=== PATIENT | female | born 1980 | race Native Hawaiian/Other Pacific Islander ===

== ENCOUNTER 2016-12-01 06:49 | Emergency (ER) | payer OTHER ==
[~2016-12-01] VITALS: Ht 152.4 cm; Wt 54.5 kg
[~2016-12-01 06:49] MED LIST: ASCO1TAB22 PO; Docusate Sodium PO; HYDR25SU31 RC; Hydrocodone/Acetaminophen PO; Ibuprofen PO; PREN-125 PO
[2016-12-01 06:51] VITALS: BP 117/75; PULSE 79; RESP 16; O2SAT 99
--- NOTE | 2016-12-01 07:19 | ED.REPORT ---
HPI-Abd Pain F Under 40 Date of Service Dec 01, 2016 ED Provider: Mamie Doe MD Patient is an otherwise healthy 35 year old female who presents to the ED complaining of lower abdominal pain onset yesterday. The onset of her pain occurred the day after the onset of her period. Her pain is 7/10 in severity, worse with BM's, and is localized to the suprapubic region. Her last BM was yesterday. Associated symptoms include mild headache and bloating. She denies nausea, vomiting, fevers, chills, diarrhea, constipation, dysuria, or any other symptoms. She has been taking Ibuprofen, 600mg, 2x a day and using a heating pad without relief. She has had similar, though less severe, symptoms previously and it has been an ongoing issue. She does not have particularly heavy periods and is not bleeding heavily with this episode. She was started on control one month ago in attempt to help with her regular period cramping. She has a follow up appointment in January. In September she was diagnosed with a R ovarian cyst that may be hemorrhagic. Nursing Notes Stated Complaint: STOMACH PAIN Chief Complaint: Female Abdominal Pain Nursing Notes Reviewed: Yes Allergies: Coded Allergies: No Known Allergies (Unverified , 12/01/16) Scheduled ([Docusate Sodium]) 100 MG CAPSULE 100 MG PO BID Nitrofurantoin Monohyd/M-Cryst (MacroBid) 100 Mg Capsule 100 MG PO BID Scheduled PRN ([Ibuprofen]) 800 MG TABLET 800 MG PO Q8 PRN PRN For Pain ([Hydrocodone/Acetaminophen]) 1 TAB TABLET 1-2 TAB PO Q4H PRN PRN For Pain Miscellaneous Medications ([None]) Ascorbic Acid/Bioflavonoids (Vit C-Bioflavonoids Tab SA) 1 Each Tablet.er 1 EACH PO Hydrocortisone Acetate (Anusol-Hc) 25 Mg Supp.rect 25 MG RC Vit #60/Iron Fum/FA (Pnv Folic Acid + Iron Tablet) 1 Each Tablet 1 EACH PO General Time Seen by MD: 06:58 Chief Complaint Abdominal pain Hx Obtained From: Patient Arrived By: Walk-in Sudden in Onset?: Yes Onset Occurred: Yesterday Symptom Duration: Since onset Location: : Suprapubic Quality: Painful Severity: Current: Pain level 7 out of 10 Similar Sx Previous: Yes Past Medical History Past Medical History Healthy Past Surgical History None reported Smoking History Never Smoker Social History Alcohol Use: Denies alcohol use Drug Use: Denies drug use Ambulatory Status Independent Review of Systems Constitutional: Denies: Chills, Fever GI: Reports: Abdominal pain (worse with BM's, with bloating ), Denies: Constipation, Diarrhea, Nausea, Vomiting Female: Denies: Dysuria Complete sys rev & neg: except as marked. Neurologic: Reports: Headache Physical Exam Initial Vital Signs Vital Signs (First) Date Time Temp Pulse Resp B/P Pulse Ox O2 Delivery O2 Flow Rate FiO2 12/01/16 06:51 36.3 79 16 117/75 99 Room Air Initial VS: Reviewed, Vital signs normal Head / Eyes: Atraumatic, Normocephalic Neck: Full range of motion Skin: Warm, Dry Neurologic: Alert, Oriented, Nonfocal Psychiatric: Mood/affect normal, Behavior normal, Normal thought content General/Constitutional: Awake, Alert, No acute distress Respiratory / Chest: Breath sounds NL, Breath sounds = bilat, No respiratory distress Cardiovascular: Heart rate NL, Regular rhythm, Heart sounds NL, No gallop, No murmurs, No rubs Abdomen: Atraumatic, Soft, Non-tender mild bloating Back: Atraumatic Interpretation & Diagnostics Interpretation & Diagnostics: Urine trace leuks and positive nitrites Lab Results Interpretation Result Diagram: 12/01/16 0836 12/01/16 0836 Test 12/01/16 07:48 12/01/16 08:36 Urine Color Straw (YELLOW) Urine Appearance Hazy (CLEAR,HAZY) Urine pH 6.0 (5.0-8.0) Urine Specific [place] 1.015 (1.003-1.035) Urine Protein Negativemg/dL (NEG,TRACE) Urine Glucose (UA) Negativemg/dL (NEGATIVE) Urine Ketones Negativemg/dL (NEGATIVE) Urine Occult Blood Large (NEGATIVE) Urine Nitrite Negative (NEGATIVE) Urine Bilirubin Negative (NEGATIVE) Urine Urobilinogen Normalmg/dL (NORMAL) Urine Leukocyte Esterase Small (NEGATIVE) Urine RBC 3-10/hpf (0-2) Urine WBC 11-50/hpf (0-5) Urine Epithelial Cells Occasional/hpf (NONE-MOD) Urine Crystals None seen (NONE SEEN) Urine Bacteria Moderate/hpf (NONE-FEW) Urine Hyaline Casts None/lpf (NONE) Urine Granular Casts None seen (NONE SEEN) Urine Waxy Casts None seen (NONE SEEN) Urine Red Blood Cell Casts None seen (NONE SEEN) Urine White Blood Cell Casts None seen (NONE SEEN) Urine Mucus None seen (None Seen) Urine Trichomonas None seen (NONE SEEN) Urine Yeast None (NONE SEEN) Urinalysis Comment None Urine Culture Reflexed Indicated White Blood Count 6.7th/mm3 (3.8-10.1) Red Blood Count 3.91mil/mm3 (3.90-5.20) Hemoglobin 11.4g/dL (12.0-15.6) Hematocrit 34.7% (35.0-46.0) Mean Corpuscular Volume 88.7fL (81-100) Mean Corpuscular Hemoglobin 29.2pg (27.0-35.0) Mean Corpuscular Hemoglobin Concent 32.9% (32.0-37.0) Red Cell Distribution Width 12.8% (12.3-15.4) Platelet Count 240bil/L (150-400) Neutrophils (%) (Auto) 61.8% (40-74) Lymphocytes (%) (Auto) 28.0% (14-46) Monocytes (%) (Auto) 8.0% (4-12) Eosinophils (%) (Auto) 1.5% (0-5) Basophils (%) (Auto) 0.5% (0-3) Sodium Level 141mEq/L (134-144) Potassium Level 3.7mEq/L (3.5-5.2) Chloride Level 106mEq/L (97-108) Carbon Dioxide Level 22mmol/L (18-29) Blood Urea Nitrogen 9mg/dL (6-20) Creatinine 0.63mg/dL (0.57-1.00) Estimat Glomerular Filtration Rate 155mL/min (>59) Glucose Level 103mg/dL (60-99) Calcium Level 7.9mg/dL (8.5-10.1) Total Bilirubin 0.3mg/dL (0.0-1.2) Aspartate Amino Transf (AST/SGOT) 12U/L (0-50) Alanine Aminotransferase (ALT/SGPT) 7U/L (0-32) Alkaline Phosphatase 60U/L (25-150) Total Protein 6.6g/dL (6.4-8.4) Albumin 3.7g/dL (3.4-5.0) Lipase 30U/L (13-60) Lab Results Interpretation: US from 10/12/16: IMPRESSION: 1. Trace amount of dynamic endometrial fluid present. 2. Complex mass involving the right ovary likely representing a small hemorrhagic cyst. Differential diagnosis would include endometrioma as well as other benign or malignant neoplasm. Recommend short term follow pelvic ultrasound in 6-12 weeks to assess for temporal resolution. Dictated by: Jaiden Noble RRA Interpreted: Puja Diaz MD on 10/13/2016 at 8:16 Approved by: Puja Diaz M.D. on 10/13/2016 at 17:02 US Focused non-OB Pelvis ovarian cyst resolved no free fluid in pelvis Exam Performed by: Allied health pract Re-Eval/Medical Decision Re-Evaluation/Progress #1: Time of Eval: 08:00 Re-Evaluation/Progress Note: Clinic note from patient's PCP on 11/02 indicates a diagnosis of dysmenorrhea and a plan for F/U in 3 mo Re-Evaluation/Progress #2: Time of Eval: 08:24 )( Re-Eval Abdomen: Soft Re-Evaluation/Progress Note: Discussed ultraound results, diagnosis, and plan for discharge. Patient understands and agrees with plan. All questions addressed at this time. Re-Evaluation/Progress #3: Time of Eval: 09:43 )( Re-Eval Abdomen: Soft Re-Evaluation/Progress Note: Rechecked patient who is feeling better. Patient would like to go home. Discussed plan for discharge. Patient understands and agrees with plan. All questions addressed at this time. Counseled Regarding: Diagnosis, Need for follow-up, When/why to return to ED Discharge & Departure Primary Impression: UTI (urinary tract infection) Urinary tract infection type: site unspecified Hematuria presence: without hematuria Qualified Code: N39.0 - Urinary tract infection, site not specified Additional Impression: Dysmenorrhea Disposition: Home Discharge Condition All VS Reviewed: Yes Condition: Stable Patient Instructions: Urinary Tract Infection in Women (ED) Additional Instructions: Thank you for coming to the emergency department. Your ultrasound is reassuring. Your ovarian cyst has resolved. Take Nitrofurantoin twice a day for 7 days. Continue to take Ibuprofen (up to 600mg 3 times a day) as needed for pain and control pills as scheduled. Follow up with your primary doctor within the next week. Return to the emergency department for any new or worsening symptoms. Referrals: Kenny Al MD Attestation Portions of this note were transcribed by Erika Rizo. I, Dr. Doe, personally performed the history, physical exam, and medical decision making; I reviewed and confirmed the accuracy of the information in the transcribed note. Signed by: Hieu Kearns, 12/01/16 copies to: Kenny Al MD, Shawna L MD Dec 01, 2016 07:19 ERIKA RIZO Dec 01, 2016 07:25
[2016-12-01] MEDS ORDERED: 0.9% Sodium Chloride 1,000 ML IV ONE (07:25)
[2016-12-01 08:06] LABS: APPEARANCE,URINE HAZY (CLEAR,HAZY); COLOR,URINE STRAW (YELLOW); OCCULT BLOOD,URINE LARGE (NEGATIVE); UROBILINOGEN,URINE NORMAL (NORMAL)
[2016-12-01 08:47] LABS: BASOPHILS % (AUTO) 0.5 % (0-3); EOSINOPHILS % (AUTO) 1.5 % (0-5); Mean Corpuscular Hemoglobin 29.2 pg (27.0-35.0); Mean Corpuscular Volume 88.7 fL (81-100); NEUTROPHILS % (AUTO) 61.8 % (40-74); Platelet Count 240 bil/L (150-400)
[2016-12-01] MEDS ORDERED: Nitrofurantoin Monohyd-Macrocryst 100 mg Capsule PO ONE (08:55)
--- NOTE | 2016-12-01 09:57 | DRSVH ---
PROCEDURE: US PELVIC SONOGRAM + TRANSVAGINAL SONOGRAM INDICATIONS: pelvic pain, prior ovarian cyst TECHNIQUE: Real-time scanning was performed of the pelvic organs, with image documentation. Additional endovagi nal scanning was necessary due to incomplete visualization of the adnexal and endometrial structures by transabdominal scanning. COMPARISON: [facility] Ultrasound, US, US PELVIC+TRANSVAG, 10/12/2016, 16:38. FINDINGS: (orthogonal measurements) Uterus size: 8.91 cm, 4.65 cm, 5.63 cm Endometrium thickness: 5.80 mm Right ovary size: 2.87 cm, 1.56 cm, 3.18 cm Left ovary size: 2.40 cm, 2.02 cm, 2.85 cm Transabdominal scanning: Limited scanning through the kidneys shows no hydronephrosis. No pathologi c free abdominal or pelvic fluid. Endovaginal scanning: Uterus: Uterus is normal in size and appearance. Endometrium is within normal physiologic limits. Ovaries: Within normal physiologic limits, with bilateral follicular cysts. IMPRESSION: No source for pelvic pain identified sonographically. Previously noted right ovarian cyst is not identified Dictated by: Jaiden Noble [facility] Interpreted: George Zaldivar MD on 12/01/2016 at 9:01 Approved by: George Zaldivar M.D. on 12/01/2016 at 9:54
[2016-12-01] MEDS ORDERED: NITR100 PO (10:07)
[2016-12-01 10:17] VITALS: BP 104/63; PULSE 66; RESP 16; O2SAT 100
== END 2016-12-01 10:21 | disposition home or self-care (01) ==
LOC: SED 06:49
DX: N39.0 Urinary tract infection, site not specified (principal); N94.6 Dysmenorrhea, unspecified; R51 Headache
CPT/HCPCS: 36415; 76830; 76856; 80053; 81000; 81025; 83690; 85025; 87086; 87088; 96374; 99285; J1885; J7030